=== PATIENT | female | born 1960 | race Two or more races ===

== ENCOUNTER 2022-09-03 11:58 | Emergency (ER) | payer OTHER ==
[~2022-09-03] VITALS: Ht 157.5 cm; Wt 74.8 kg
[2022-09-03] MEDS ORDERED: KAPSPARGO SPRIN25 MG (12:21)
[2022-09-03] MEDS ORDERED: COZAAR50 MG (12:21)
[2022-09-03] MEDS ORDERED: HYDRALAZINE HCL25 MG (12:21)
== END 2022-09-03 14:00 | disposition home or self-care (01) ==
LOC: ER 11:58
DX: K59.00 Constipation, unspecified (principal); I10 Essential (primary) hypertension